=== PATIENT | female | born 1950 | race Caucasian/White ===

== ENCOUNTER → 2016-10-21 | Outpatient (CLI) | payer BC ==
[~2016-10-21] MED LIST: ASCO1CAP3 PO; DIPH-437 PO; ESTR1CRE PV; LUTE10TA PO; OMEGCAP2 PO
== END | disposition home or self-care (01) ==
LOC: C.RDSM 09:00
PROVIDERS: ATTEND Physical Medicine & Rehabilitation Sports Medicine
DX: M25.551 Pain in right hip (principal); M25.561 Pain in right knee

== ENCOUNTER 2017-03-17 00:30 | Emergency (ER) | payer OTHER ==
[~2017-03-17] VITALS: Ht 160 cm; Wt 70.9 kg
[2017-03-17 00:39] VITALS: Ht 160 cm; Wt 70.9 kg
[2017-03-17] MEDS ORDERED: CHOL1000 PO (01:02)
[2017-03-17 01:27] LABS: BASO % 0.4 %; BASO ABS # 0.02 K/uL (0-0.2); COMPLETE YES; EOS % 3.8 %; HEMATOCRIT 43.3 % (37-47); IG% 0.4 %; LYMPH % 26.6 %; LYMPH ABS # 1.49 K/uL (1.2-3.4); MEAN CELL VOLUME 93.1 fL (80-100); MEAN CORPUSCULAR HEMOGLOBIN 33.3 pg (25-34); MEAN CORPUSCULAR HGB CONC 35.8 g/dl (32-36); MEAN PLATELET VOLUME 10.9 fL (7.4-10.4); MONO % 12.3 %; NEUT % 56.5 %; PLATELET COUNT 179 K/uL (130-400); RED BLOOD COUNT 4.65 M/uL (4.2-5.4)
--- NOTE | 2017-03-17 01:30 | EMERGENCY ROOM VISIT NOTE ---
History Report prepared by Aneta: Idania Gross Under the Supervision of: Dr. Camilo Angel M.D. First contact with patient: 01:10 Chief Complaint: TACHYCARDIA Stated Complaint: INCREASED HEART RATE AND BLOOD PRESSURE X 1 1/2 HR Nursing Triage Summary: Pt c/o increased HR that woke her up around 1030pm. Pt states she has been checking her BP since and it has been elevated. Pt has been fighting a cold, last dose of Delsym on Thursday night. Pt denies CP/SOB/dizziness. Pt states "she feels disconnected." History of Present Illness The patient is a 66 year old female who presents to the Emergency Room with complaints of an episode of tachycardia starting an hour and a half ago. The patient states that she felt like her heart has been racing. She reports that she has a BP cuff at home and the highest it was was 184/110. She notes her highest heart rate was 110 bpm. She reports that she has been battling a cold for the past few days and took Delsym two days ago. The patient complains of feeling in slow motion all day yesterday. The patient notes that she had a cough and post nasal drip. She reports that she has also been experiencing increased indigestion that is resolved with TUMS. She notes that she just had her yearly physical with her PCP and they found a heart murmur. She reports that she had an echo and EKG done that are normal. The patient denies urinary symptoms, diarrhea, rashes, and a history of thyroid problems. Source of History: patient Onset: an hour and a half ago Position: other (global) Quality: other (global) Timing: other (episode) Associated Symptoms: + cough, No diarrhea, No urinary symptoms, No rash Note: The patient complains of feeling in slow motion, a post nasal drip, and indigestion. Review of Systems See HPI for pertinent positives & negatives. A total of 10 systems reviewed and were otherwise negative. Family History Patient reports no known family medical history. Social History Smoking Status: Never Smoker Marital Status: Housing Status: lives with family Occupation Status: employed Current/Historical Medications Scheduled Ascorbic Acid (Vitamin C), 500 MG PO QAM Cholecalciferol (Vitamin D3), 2 TABS PO DAILY Lutein (Lutein), 10 MG PO QAM [place]-3 Fatty Acids (Fish Oil), 1 CAP PO QAM Scheduled PRN Acetaminophen/Diphenhydramine (Tylenol Pm), 1 TAB PO HS PRN for PRN Allergies Coded Allergies: NO KNOWN DRUG ALLERGIES (Verified Allergy, Mild, ., 03/17/17) Physical Exam Vital Signs Date Time Temp Pulse Resp B/P (MAP) Pulse Ox O2 Delivery O2 Flow Rate FiO2 03/17/17 02:18 36.7 81 20 160/91 99 03/17/17 00:56 Room Air 03/17/17 00:39 36.7 94 20 166/115 100 Room Air Physical Exam GENERAL: Patient is midly anxious appearing and in no acute distress. HEENT: No acute trauma, normocephalic atraumatic, mucous membranes moist, no nasal congestion, no scleral icterus. NECK: No stridor, no adenopathy, no meningismus, trachea is midline. LUNGS: No dyspnea. Clear to auscultation and equal bilaterally. No wheeze, no rhonchi. HEART: Regular rate and rhythm. No murmurs, rubs, gallops appreciated. ABDOMEN: Soft, nontender, bowel sounds positive, no masses appreciated, no peritonitis. BACK: No midline tenderness, no CVA tenderness EXTREMITIES: Normal motion all extremities, no cyanosis, no edema. NEUROLOGIC: Alert and oriented, no acute motor or sensory deficits, no focal weakness, cranial nerves grossly intact. SKIN: No rash, no jaundice, no diaphoresis. Medical Decision & Procedures ER Provider Diagnostic Interpretation: X ray results are stated below per my interpretation: Chest: 1 view: No infiltrate, no effusion, normal cardiac border. Laboratory Results 03/17/17 00:50 Red Blood Count 4.65, Mean Corpuscular Volume 93.1, Mean Corpuscular Hemoglobin 33.3, Mean Corpuscular Hemoglobin Concent 35.8, Mean Platelet Volume 10.9, Neutrophils (%) (Auto) 56.5, Lymphocytes (%) (Auto) 26.6, Monocytes (%) (Auto) 12.3, Eosinophils (%) (Auto) 3.8, Basophils (%) (Auto) 0.4, Neutrophils # (Auto ) 3.17, Lymphocytes # (Auto) 1.49, Monocytes # (Auto) 0.69, Eosinophils # (Auto ) 0.21, Basophils # (Auto) 0.02 03/17/17 00:50 Test 03/17/17 00:50 White Blood Count 5.60 K/uL (4.8-10.8) Red Blood Count 4.65 M/uL (4.2-5.4) Hemoglobin 15.5 g/dL (12.0-16.0) Hematocrit 43.3 % (37-47) Mean Corpuscular Volume 93.1 fL (80-100) Mean Corpuscular Hemoglobin 33.3 pg (25-34) Mean Corpuscular Hemoglobin Concent 35.8 g/dl (32-36) Platelet Count 179 K/uL (130-400) Mean Platelet Volume 10.9 fL (7.4-10.4) Neutrophils (%) (Auto) 56.5 % Lymphocytes (%) (Auto) 26.6 % Monocytes (%) (Auto) 12.3 % Eosinophils (%) (Auto) 3.8 % Basophils (%) (Auto) 0.4 % Neutrophils # (Auto) 3.17 K/uL (1.4-6.5) Lymphocytes # (Auto) 1.49 K/uL (1.2-3.4) Monocytes # (Auto) 0.69 K/uL (0.11-0.59) Eosinophils # (Auto) 0.21 K/uL (0-0.5) Basophils # (Auto) 0.02 K/uL (0-0.2) RDW Standard Deviation 43.0 fL (36.4-46.3) RDW Coefficient of Variation 12.6 % (11.5-14.5) Immature Granulocyte % (Auto) 0.4 % Immature Granulocyte # (Auto) 0.02 K/uL (0.00-0.02) Anion Gap 7.0 mmol/L (3-11) Est Creatinine Clear Calc Drug Dose 79.0 ml/min Estimated GFR () 106.9 Estimated GFR (Non- 92.2 BUN/Creatinine Ratio 22.2 (10-20) Calcium Level 9.0 mg/dl (8.5-10.1) Troponin I < 0.015 ng/ml (0-0.045) Thyroid Stimulating Hormone (TSH) 4.320 uIu/ml (0.300-4.500) Laboratory results as reviewed by me. ECG Indication: tachycardia Rate (beats per minute): 81 Rhythm: normal sinus Findings: no acute ischemic change, no ectopy Comparison ECG Date: October 23, 2015 Change: no significant change Change: Similar morphology to previous. ED Course 0111: The patient was evaluated in room B3B. A complete history and physical exam was performed. 0210: Reevaluated the patient and she is feeling better. Her blood pressure is table and she would like to go home. Discussed results and discharge instructions: She verbalized understanding and agreement. The patient is ready for discharge. Medical Decision Differential: NSR, SVT, PACs, PVCs, Cardiac Dysrhythmia, Endocrine Dysfunction, Electrolyte/Metabolic Abnormality, Pulmonary Embolism, Infectious, GI, amongst other pathologies entertained. Pleasant 66 yr old female with several hours palpitations and HTN at home. Symptoms resolving by time here though still somewhat HTN. She has been dealing with URI which I suspect is cause of HTN and maybe palpitations. CXR, EKG, Labs look OK. She is stable. Monitor good for several hours with HR 70s- 80s. She is in no distress and looks well. She will follow up with PCP for repeat BP checks and discussion though at present no need to change meds. Reviewed symptoms requiring RTED. Medication Reconcilliation Current Medication List: was personally reviewed by me Blood Pressure Screening Patient's blood pressure: Elevated blood pressure Blood pressure disposition: Referred to PCP Impression Primary Impression: HTN (hypertension) Additional Impression: Heart palpitations Scribe Attestation The scribe's documentation has been prepared under my direction and personally reviewed by me in its entirety. I confirm that the note above accurately reflects all work, treatment, procedures, and medical decision making performed by me. Departure Information Dispostion Home / Self-Care Referrals Regino Smith M.D. (PCP) Forms HOME CARE DOCUMENTATION FORM, IMPORTANT VISIT INFORMATION, WORK / SCHOOL INSTRUCTIONS Patient Instructions ED Palpitations, [facility] Additional Instructions Your blood pressure was elevated during this visit. This is quite common in many people who are being evaluated in the Emergency Department for many reasons. However, it is important that you have your Primary Care Provider recheck your blood pressure and discuss whether treatment will be needed. prison elevated blood pressure can lead to strokes, heart attacks, kidney failure amongst other medical issues. If you develop severe headaches, chest pain, weakness in arms or legs, or other concerning symptoms call 911. Problem Qualifiers
[2017-03-17 01:38] LABS: BLOOD UREA NITROGEN 15 mg/dl (7-18); BUN/CREATININE RATIO 22.2 (10-20); CARBON DIOXIDE 26 mmol/L (21-32); CHLORIDE 106 mmol/L (98-107); CREATININE 0.67 mg/dl (0.60-1.20); GLUCOSE 106 mg/dl (70-99); POTASSIUM 3.5 mmol/L (3.5-5.1); SODIUM 139 mmol/L (136-145)
[2017-03-17 02:18] VITALS: BP 160/91; PULSE 81; TEMP 36.7; O2SAT 99
--- NOTE | 2017-03-17 06:37 | DIAGNOSTIC IMAGING REPORT ---
CHEST ONE VIEW PORTABLE CLINICAL HISTORY: Atypical chest pain COMPARISON STUDY: No previous studies for comparison. FINDINGS: The cardiac and mediastinal contours are normal. There is no evidence of focal pulmonary consolidation. There is no evidence of failure. No pleural effusions are visualized.[ There are calcified left hilar lymph nodes, likely postinflammatory. IMPRESSION: No active disease in the chest. Electronically signed by: Tony Calixto M.D. 03/17/2017 6:35 AM Dictated Date/Time: 03/17/2017 6:35 AM
== END 2017-03-17 02:19 | disposition home or self-care (01) ==
LOC: C.EDB 00:32
DX: I10 Essential (primary) hypertension (principal); R00.2 Palpitations

== ENCOUNTER → 2017-05-28 | Outpatient (CLI) | payer OTHER ==
[~2017-05-28] MED LIST changes: +CHOL1000 PO; -ESTR1CRE PV
--- NOTE | 2017-05-28 14:02 | MAMMOGRAPHY REPORT ---
BILATERAL DIGITAL SCREENING MAMMOGRAM TOMOSYNTHESIS WITH CAD: 05/28/2017 CLINICAL HISTORY: Routine screening. Patient has no complaints. TECHNIQUE: Breast tomosynthesis in addition to standard 2D mammography was performed. Current study was also evaluated with a Computer Aided Detection (CAD) system. COMPARISON: Comparison is made to exams dated: 07/06/2015 mammogram, 06/21/2014 mammogram, 05/11/2013 lena mogram, 04/23/2012 mammogram, 04/16/2011 mammogram, and 04/03/2010 mammogram - [facility]ter. BREAST COMPOSITION: The tissue of both breasts is heterogeneously dense, which may obscure small mas ses. FINDINGS: There are mild vascular calcifications and scattered benign rim calcifications in the shefali sts. No suspicious mass, architectural distortion or cluster of microcalcifications is seen. IMPRESSION: ACR BI-RADS CATEGORY 2: BENIGN There is no mammographic evidence of malignancy. A 1 year screening mammogram is recommended. The pa tient will receive written notification of the results. Approximately 10% of breast cancers are not detected with mammography. A negative mammographic report should not delay biopsy if a clinically suggestive mass is present. Andreina Patton M.D. ay/:05/28/2017 10:13:00 Health Program Analyst: Kelsey RAMIREZ(R)(Dilia), [facility] letter sent: Normal 1/2 BI-RADS Code: ACR BI-RADS Category 2: Benign
== END | disposition home or self-care (01) ==
LOC: C.MAMM 09:05
PROVIDERS: ATTEND Family Medicine
DX: Z12.31 Encounter for screening mammogram for malignant neoplasm of breast (principal)

== ENCOUNTER 2024-10-31 11:03 | Observation (INO) ==
--- NOTE | 2024-09-20 09:59 | PAT Medication Instructions ---
Medication Instructions Date of Service September 20, 2024 Home Medications Medication Instructions Recorded estradiol 0.01% (0.1 mg/gram) 0.5 g vaginal 2XWK #42.5 grams 03/02/24 vaginal cream ascorbic acid (vitamin C) 500 mg tablet 1,000 mg PO PM cholecalciferol (vitamin D3) 25 mcg (1,000 unit) capsule 1,000 units PO HS metoprolol succinate 25 mg tablet,extended release 24 hr (Toprol XL) 25 mg PO HS omega-3 fatty acids 1,000 mg capsule (Fish Oil Concentrate) 1,000 mg PO HS [place] 1 tab PO HS diphenhydramine 25 mg-acetaminophen 500 mg tablet (Tylenol PM Extra Strength) 0.5 tab PO HS apixaban 5 mg tablet 5 mg PO BID PRN estradiol 0.01% (0.1 mg/gram) vaginal cream 0.5 g vaginal 2XWK calcium carbonate (Tums) 2,250 mg PO DAILY PRN turmeric 400 mg capsule 1,400 mg PO HS ASK your prescriber and surgeon apixaban 5 mg tablet 5 mg PO BID PRN(in order for spinal or epidural anesthesia, Eliquis needs to be stopped 72 hours/3 days before surgery. Please check if okay with doctor that prescribes this to you) STOP taking 2 weeks before surgery (or as soon as possible if surgery is within 2 weeks) omega-3 fatty acids 1,000 mg capsule (Fish Oil Concentrate) 1,000 mg PO HS Macushield 1 tab PO HS turmeric 400 mg capsule 1,400 mg PO HS STOP taking 24 hours before surgery estradiol 0.01% (0.1 mg/gram) vaginal cream 0.5 g vaginal 2XWK DO NOT take the morning of surgery calcium carbonate (Tums) 2,250 mg PO DAILY PRN Take evening before surgery ascorbic acid (vitamin C) 500 mg tablet 1,000 mg PO PM cholecalciferol (vitamin D3) 25 mcg (1,000 unit) capsule 1,000 units PO HS metoprolol succinate 25 mg tablet,extended release 24 hr (Toprol XL) 25 mg PO HS diphenhydramine 25 mg-acetaminophen 500 mg tablet (Tylenol PM Extra Strength) 0.5 tab PO HS Other Notes NOTHING TO EAT OR DRINK AFTER MIDNIGHT. If you have any questions please call us at [phone] or [phone] or [phone] or [phone]
--- NOTE | 2024-09-26 12:05 | Anesthesiology Consultation ---
Date of Service September 26, 2024 Assessment & Plan (1) Encounter for pre-operative examination: - PAT testing to be faxed to Dr. Troncoso with [facility] PCP by patient request for continuity of care. - will request most recent pacemaker report and [facility] Dr. Alvarez cardiology office note. - Med[employer] pacemaker. Chart Review Chart Review: Pending: Refer to Additional Notes / Consult section and Patient seen in Pre Admission Testing Teaching & Discussion Pre-Anesthesia Teaching/Discussion Notes: Instructed NPO after midnight before surgery, except medications with 15 cc of water. Medication instructions provided according to the PAT guidelines. History Surgery Operation Date: 10/31/24 08:15 Proposed Procedures p Right Anterior Total Hip Arthroplasty - Cole Brown DO Height/Weight Height: 5 ft 2 in Weight: 71.4 kg Allergies Allergy/AdvReac Type Severity Reaction Status Date / Time No Known Drug Allergies Allergy Mild . Verified 09/19/24 09:39 Medications Home Medications Medication Instructions Recorded Confirmed Last Taken ascorbic acid (vitamin C) 500 mg 1,000 mg PO PM 02/25/19 09/19/24 03/22/20 21:00 tablet cholecalciferol (vitamin D3) 25 1,000 units PO HS 02/25/19 09/19/24 03/22/20 21:00 mcg (1,000 unit) capsule metoprolol succinate 25 mg 25 mg PO HS 02/25/19 09/19/24 03/22/20 21:00 tablet,extended release 24 hr (Toprol XL) omega-3 fatty acids 1,000 mg 1,000 mg PO HS 02/25/19 09/19/24 03/22/20 21:00 capsule (Fish Oil Concentrate) [place] 1 tab PO HS 03/20/20 09/19/24 03/22/20 21:00 diphenhydramine 25 0.5 tab PO HS 03/20/20 09/19/24 03/22/20 21:00 mg-acetaminophen 500 mg tablet (Tylenol PM Extra Strength) apixaban 5 mg tablet 5 mg PO BID PRN Atrial Fibrillation 02/16/23 09/19/24 Unknown estradiol 0.01% (0.1 mg/gram) 0.5 g vaginal 2XWK #42.5 grams 03/02/24 09/19/24 Unknown vaginal cream calcium carbonate (Tums) 2,250 mg PO DAILY PRN Acid Reflux 09/19/24 09/19/24 Unknown turmeric 400 mg capsule 1,400 mg PO HS 09/19/24 09/19/24 Unknown Past Medical History Medical History (Updated 09/26/24 @ 12:14 by Cyndi Santos PA-C) Acid reflux controlled, stable per pt Bladder prolapse Globus sensation History of 2019 novel coronavirus disease (COVID-19) 06/2024 > resolved. 02/16/2020 > resolved History of anesthesia reaction 2014 [place] emphysema in [place] [facility] [place] in [place] overnight--no further issues/no other issues with anesthesia Moderate obstructive sleep apnea On anticoagulant therapy on eliquis daily Paroxysmal atrial fibrillation per pt last episode of a-fib was 11/2023--on eliquis prn/metoprolol follows with Dr. Alvarez Second degree heart block s/p pacemaker; follows with Dr. 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 Exercise / Class Metabolic Activity II 4-5 Yardwork/Stairs/Walk up hill (denies chest discomfort or shortness of breath with one flight of stairs) Past Family History Family History Sister Hypertension Asthma Father Heart disease Cirrhosis Brother Cancer Hypertension Mother Lung cancer Other No family history of adverse response to anesthesia Past Surgical History Surgical History History of benign breast biopsy History of bladder suspension procedure sling in place History of bunionectomy bilat great toes [place] of cardiac [place]2018 [place] [facility] [place] History of colonoscopy (~2010) History of esophagogastroduodenoscopy (EGD) History of hysterectomy [facility] History of open reduction and internal fixation (ORIF) procedure right ankle--hardware in place History of wisdom tooth extraction S/P placement of cardiac pacemaker 04/2018 @ [facility] > last checked 09/08/24 at Fragin's office Urethral diverticulum s/p excision Past Anesthesia History No Hx of Anesthesia Complications and No Family Hx of Anesthesia Complications History of PONV No Hx of PONV and No Hx of Motion Sickness Social History Smoking Status: Never smoker Do You Dip or Chew Tobacco: No Hx Alcohol Use: Yes Alcohol type: beer alcohol intake frequency: a few times a week Hx Substance Use: No substance use type: does not use Review of Systems Patient denies chest pain, shortness of breath, dyspnea on exertion, fever, chills, cough, wheezing, or palpitations. Physical Exam Vital Signs Vitals BP 130/83 P 62 TEMP 97.8 SP02 96% on RA RESP 18 Physical Patient resting comfortably in chair in no acute distress, alert and oriented, responding appropriately throughout visit Full cervical extension range of motion without pain TMD 3.5 finger breadths Mallampati Score 2 Dentition: intact, denies chipped or loose teeth, caps/crowns, implants or bridges Lungs: normal respiratory effort. Good air movement, clear throughout to auscultation, no adventitious breath sounds Cardiac: regular rate and rhythm, no murmurs noted Carotid arteries: negative bruit bilat Lab Results Anesthesia Preop Results Results Anesthesia Widget: WBC 3.78 K/ul (4.8-10.8) L 09/26/24 Hgb 12.1 g/dl (12.0-16.0) 09/26/24 Hct 36.7 % (37.0-47.0) L 09/26/24 Plt 114 K/uL (130-400) L 09/26/24 Na 138 mmol/L (136-145) 09/26/24 K 3.9 mmol/L (3.5-5.1) 09/26/24 Cl 107 mmol/L (98-107) 09/26/24 CO2 28 mmol/L (21-32) 09/26/24 BUN 11 mg/dl (6-23) 09/26/24 Creat 0.57 mg/dl (0.6-1.2) L 09/26/24 Glucose Level 87 mg/dl (70-99(Fasting)) 09/26/24 PT 10.6 Seconds (9.0-12.0) 09/26/24 PTT 27 Seconds (21-31) 09/26/24 INR 1.0 (0.9-1.1) 09/26/24 Blood Type A Positive 09/26/24 Antibody Screen NEGATIVE 09/26/24 Testing Electrocardiogram Date: 09/26/24 Atrial paced rhythm, rate 65 bpm Chest X-Ray Date: 09/26/24 No plain film evidence of an acute cardiopulmonary process. Stress Test Date: 03/08/20 METS 7 MPHR 67% Negative stress echo and EKG for ischemia; cannot rule out ischemic at higher heart rates EF 65% Mild to moderately dilated LV 3:2 conduction, pacemaker recommended
--- NOTE | 2024-10-27 12:05 | History & Physical Report ---
Date of Service October 27, 2024 Assessment & Plan (1) Osteoarthritis of right hip: We will proceed with a right anterior total of arthroplasty. Postoperatively, she will be started on Eliquis for DVT prophylaxis and kept overnight in the hospital for postop medical management. She plans to use energy physical therapy after discharge. History of Present Illness Chief Complaint: Osteoarthritis right hip. Primary Care Provider: Azalia Khan MD Rayna is a pleasant 73-year-old female who has been dealing with chronic increasing right hip and groin pain. X-rays and clinical exam have been diagnostic for advanced arthritis of right hip. She has been treated at another facility conservatively. She has had intraarticular hip injections, but unfortunately she is still dealing with pain. After failing conservative treatment, she has elected to proceed with a right anterior total of arthroplasty. . Allergies Allergy/AdvReac Type Severity Reaction Status Date / Time No Known Drug Allergies Allergy Mild . Verified 09/19/24 09:39 Home Medications Medication Instructions Recorded Confirmed Type ascorbic acid (vitamin C) 500 mg 1,000 mg PO PM 02/25/19 09/19/24 History tablet cholecalciferol (vitamin D3) 25 1,000 units PO HS 02/25/19 09/19/24 History mcg (1,000 unit) capsule metoprolol succinate 25 mg 25 mg PO HS 02/25/19 09/19/24 History tablet,extended release 24 hr (Toprol XL) omega-3 fatty acids 1,000 mg 1,000 mg PO HS 02/25/19 09/19/24 History capsule (Fish Oil Concentrate) [place] 1 tab PO HS 03/20/20 09/19/24 History diphenhydramine 25 0.5 tab PO HS 03/20/20 09/19/24 History mg-acetaminophen 500 mg tablet (Tylenol PM Extra Strength) apixaban 5 mg tablet 5 mg PO BID PRN Atrial Fibrillation 02/16/23 09/19/24 History estradiol 0.01% (0.1 mg/gram) 0.5 g vaginal 2XWK #42.5 grams 03/02/24 09/19/24 Rx vaginal cream calcium carbonate (Tums) 2,250 mg PO DAILY PRN Acid Reflux 09/19/24 09/19/24 History turmeric 400 mg capsule 1,400 mg PO HS 09/19/24 09/19/24 History Past Med/Surg History Problem List Osteoarthritis of right hip Lesion of right upper eyelid Encounter for pre-operative examination Nocturnal hypoxemia Mild obstructive sleep apnea mild, mouth guard only Arthritis (Acute) Medical History Moderate obstructive sleep apnea Paroxysmal atrial fibrillation per pt last episode of a-fib was 11/2023--on eliquis prn/metoprolol follows with Dr. Alvarez Acid reflux controlled, stable per pt TMJ (temporomandibular joint disorder) from mouth guard for apnea, has been working with dentist for other options, just sore, no locking History of 2019 novel coronavirus disease (COVID-19) 06/2024 > resolved. 02/16/2020 > resolved History of anesthesia reaction 2014 developed subcutaneous emphysema in abdomen during [facility]SO @ [facility] [place]had to stay in ICU overnight--no further issues/no other issues with anesthesia Bladder prolapse Globus sensation On anticoagulant therapy on eliquis daily Second degree heart block s/p pacemaker; follows with Dr. 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 in office Surgical History History of bunionectomy bilat great toes History of esophagogastroduodenoscopy (EGD) History of benign breast biopsy History of open reduction and internal fixation (ORIF) procedure right ankle--hardware in place History of bladder suspension procedure sling in place History of wisdom tooth extraction History of cardiac cath 04/2018 @ [facility] [place]--no stents S/P placement of cardiac pacemaker 04/2018 @ [facility] [place] [facility] > last checked 09/08/24 at Kim's office History of colonoscopy (~2010) History of hysterectomy [facility] Urethral diverticulum s/p excision Family History Sister Hypertension Asthma Father Heart disease Cirrhosis Brother Cancer Hypertension Mother Lung cancer Other No family history of adverse response to anesthesia Social History Smoking Status: Never smoker Second Hand Exposure: Yes (childhood/early adulthood); Do You Dip or Chew Tobacco: No; Tobacco Cessation Education Requested by Patient: No Hx Alcohol Use: Yes Alcohol type: beer Hx Substance Use: No Preferred Language: Persian Communication Ability: Effective Diet Assistant Required: No Beliefs That Will Affect Care: None Current Living Situation: Spouse Other Information That Helps Us Care for You: No Feels Safe at Home: Yes Safety Concerns: Feels Safe At This Time Assistive Devices: Contacts and Glasses Review of Systems All systems reviewed & are unremarkable except as noted in HPI & below. Physical Exam On physical exam of the right hip, she has decreased range of motion. She has pain with internal/external rotation. All of her pain is located in the groin.. Constitutional WD/WN, vitals as above Eyes PERRL, conjunctivae normal, anicteric sclerae ENMT external ear and nose normal, oropharynx normal Neck trachea midline, no thyromegaly Respiratory normal respiratory effort Cardiovascular RRR, no murmur, no edema Gastrointestinal (Abdomen) normal bowel sounds, soft, nontender, no hepatosplenomegaly Psychiatric A+Ox3, euthymic affect Results & Data Results & Data Laboratory Results . Diagnostic Findings X-rays of the right hip show advanced osteoarthritis with joint space narrowing, osteophyte formation, and [id number] articulation.. PG Care Time/CCT Total # of Minutes Spent Total Time Spent with Patient: Total time spent is greater than 50% in coordination of care (as documented) at patient's floor/unit and/or counseling patient: Coding Level of Care Code None Diagnoses Osteoarthritis of right hip M16.11
[~2024-10-31 11:03] MED LIST changes: -ASCO1CAP3 PO; +BUPIVACAINE 0.5 % 5 MG/1 ML PF 10ML VIAL ONE; -CHOL1000 PO; -DIPH-437 PO; -LUTE10TA PO; -OMEGCAP2 PO
[2024-10-31] MEDS: LR 500ML BOLUS, THEN 15ML/HR IV SCH (11:28)
[2024-10-31] MEDS: FAMOTIDINE 20 MG TAB PO SCH (11:29)
[2024-10-31] MEDS: GABAPENTIN 300 MG CAP PO SCH (11:29)
[2024-10-31] MEDS: ACETAMINOPHEN 500 MG TAB PO SCH ×2 (11:29→21:51)
[2024-10-31] MEDS: dexAMETHasone**PF** 10 MG/ML VIAL IV SCH (11:29)
[2024-10-31] MEDS: LR 60ML/HR IV SCH (11:30)
[2024-10-31] MEDS ORDERED: LIDOCAINE 2% 2 ML VIAL/AMP(20MG/ML) INFIL ONE (12:16)
[2024-10-31] MEDS ORDERED: MIDAZOLAM HCL 1 MG/ML 2ML VIAL ONE (12:16)
--- NOTE | 2024-10-31 12:20 | History & Physical Bridge Note ---
Date of Service October 31, 2024 History & Physical Bridge Note I have examined the patient, reviewed the History & Physical and in the interval since the performance of the History & Physical I have noted the following changes of clinical significance: no changes noted
[2024-10-31] MEDS ORDERED: ONDANSETRON INJ 2 MG/ML 2 ML VIAL IV PRN ×2 (12:43→15:57)
[2024-10-31] MEDS ORDERED: ATROPINE SULFATE 0.1 MG/ML 10ML SYR IV PRN (12:43)
[2024-10-31] MEDS: TRANEXAMIC ACID 1,000 MG **IV Pre-op IV SCH (13:10)
[2024-10-31] MEDS ORDERED: ePHEDrine sulfate 50 MG/5 ML SYR ONE (13:45)
[2024-10-31] MEDS ORDERED: ONDANSETRON INJ 2 MG/ML 2 ML VIAL ONE (13:58)
[2024-10-31] MEDS: ORTHO JOINT ANESTHETIC ONE (13:58)
[2024-10-31] MEDS: ROPIV 0.5% 246mg, Ketorolac 30mg, EPINEPHrine 0.5mg in NSS INFIL SCH (14:11)
--- NOTE | 2024-10-31 14:17 | Operative Report ---
PG Post Operative Report Pre & Post Diagnosis Operation Date: 10/31/24 13:00 Pre-Op Diagnosis: Osteoarthritis of right hip Post-Op Diagnosis: Osteoarthritis of right hip I identified the patient and participated in the time-out.: Yes Procedure Operation Date: 10/31/24 13:00 Actual Procedures p Right Anterior Total Hip Arthroplasty(Right) - Cole Brown DO Surgeon Cole Brown DO Interior [employer]sembl[employer] Developer Prover Rashi Angulo PA-C Estimated Blood Loss 250 Findings Consistent with Post-Op Diagnosis Specimens Right femoral head Description of Procedure Implants used I used a [employer] total hip arthroplasty system with a size 5 standard offset Z1 stem, a 50 mm G7 cup with a 25mm screw, an E1 polyethylene liner, a 36 mm ceramic head with a +0 neck. Rayna arrived at the hospital for the above procedure. She was seen in the preoperative holding area and the operative extremity was identified and signed. She was given a spinal anesthetic, a preoperative antibiotic, and TXA. She was then taken back to the operating room and laid on the table in the supine position. She was given basic sedation. The operative leg was secured to a Puristst leg positioner. The hip was then prepped and draped in sterile fashion. A timeout was done and the patient and the operative extremity was properly identified. An anterior approach was used. Dissection was taken down through the fascia and the tensor muscle belly was retracted laterally and the rectus was retracted medially. The circumflex vessels were identified and ligated. The capsule was then incised and tagged for later repair. The femoral neck was then cut and the femoral head was removed. The acetabulum was exposed. Time was spent doing a complete circumferential labral release. Sequential reaming of the acetabulum up to a size 49 reamer was done. Final reamings were done under fluoroscopy to ensure appropriate version. A Biomet 50 mm G7 cup was then impacted into place. A single 25 mm screw was placed. The E1 polyethylene liner was then snapped into place. Surrounding soft tissues were then injected with 100 cc of an orthopedic pain control cocktail. The proximal femur was then exposed. Sequential broaching up to a size 5 broach was done. Off that broach a size 36 head with a 0 neck was trialed. The hip was reduced and fluoroscopic images showed anatomic alignment of the implants in acceptable length. The broach was removed. The final size 5 standard offset Z1 stem was then impacted into place. A ceramic 36 mm head with a 0 neck was then impacted onto the stem and the hip was reduced. Final fluoroscopic images showed anatomic alignment of the hip. The capsule was then closed with #1 Vicryl suture. A dilute betadyne lavage was then done for 3 minutes. The joint was then irrigated with normal saline solution. The fascia was closed with #1 PDS suture. Skin was closed with 2-0 Vicryl, saleem, and a Silverlon dressing. She was then transferred to a hospital bed and taken to the post anesthesia care unit in stable condition. She tolerated the procedure well. Rashi Angulo PA-C, was present for the entire procedure. He was critical for patient positioning, prepping, draping, retraction exposure, wound closure and application of sterile dressing. I attest to the content of the Intraoperative Record and any orders documented therein. Any exceptions are noted below.
--- NOTE | 2024-10-31 14:30 | Fluoroscopy Report ---
FL hip RT 1V CLINICAL HISTORY: RT ANTERIOR HIP COMPARISON STUDY: 05/24/2024 FLUOROSCOPY TIME: 10 seconds FLUOROSCOPY IMAGES: 1 EXPOSURE DOSE: 1.2 mGy FINDINGS: Fluoroscopy was provided for right hip prosthesis. IMPRESSION: Intraoperative fluoroscopy. ACT 112: Negative or not required by law. Electronically signed by: Bucky Silvestre M.D. 10/31/2024 2:29 PM
--- NOTE | 2024-10-31 15:04 | XRay Report ---
XR hip 1V RT w pelvis CLINICAL HISTORY: IN PACU - Post Surgical COMPARISON: 05/24/2024 FINDINGS: Right hip prosthesis shows no hardware complication. There is expected soft tissue gas. IMPRESSION: Unremarkable postoperative exam. ACT 112: Negative or not required by law. Electronically signed by: Bucky Silvestre M.D. 10/31/2024 3:02 PM
[2024-10-31] MEDS ORDERED: NALOXONE HCL 0.4 MG/1 ML VIAL/CARP IV PRN (15:57)
[2024-10-31] MEDS ORDERED: MAGNESIUM HYDROXIDE SUSP 30 ML UDC PO PRN (15:57)
[2024-10-31] MEDS ORDERED: METOCLOPRAMIDE HCL INJ 5 MG/ML 2 ML VIAL IV PRN (15:57)
[2024-10-31] MEDS: SODIUM CHLORIDE 0.9% 1,000 ML IV SCH (16:26)
--- NOTE | 2024-10-31 16:29 | Anesthesiology Progress Note ---
Date of Service October 31, 2024 Anesthesia Post Procedure Vital Signs Vital Signs: Temp Pulse Pulse Resp BP Pulse Ox O2 Del Method 10/31/24 16:26 36.5 C 62 16 129/73 96 Room Air 10/31/24 16:01 36.4 C L 62 16 126/70 97 Room Air 10/31/24 15:45 63 14 103/71 98 Room Air 10/31/24 15:35 62 16 119/77 98 Room Air 10/31/24 15:25 36.3 C L 63 16 124/68 97 Room Air 10/31/24 15:15 69 18 121/69 95 Room Air 10/31/24 15:05 70 16 120/68 93 Room Air 10/31/24 14:55 66 16 114/74 95 Oxymask 10/31/24 14:45 66 18 114/63 95 Oxymask 10/31/24 14:39 36.2 C L 70 16 106/64 95 Oxymask 10/31/24 11:51 36.7 C 64 18 139/84 96 Room Air O2 Flow Rate 10/31/24 16:26 10/31/24 16:01 10/31/24 15:45 10/31/24 15:35 10/31/24 15:25 10/31/24 15:15 10/31/24 15:05 10/31/24 14:55 2 10/31/24 14:45 4 10/31/24 14:39 6 10/31/24 11:51 Transfer of Care Handoff Completed per policy Notes Mental Status: alert / awake / arousable and participated in evaluation Patient Amnestic to Procedure: Yes Nausea / Vomiting: adequately controlled Pain: adequately controlled Airway Patency, RR, SpO2: stable & adequate BP & HR: stable & adequate Hydration State: stable & adequate Neuraxial Anesthesia: was administered and sensory block is resolving Anesthetic Complications: no major complications apparent and Pt Satisfied with anesthetic care
[2024-10-31] MEDS: KETOROLAC TROMETHAMINE 15 MG/ML VIAL IV SCH (16:43)
[2024-10-31] MEDS: DOCUSATE SODIUM 100 MG CAP PO SCH (21:51)
[2024-10-31] MEDS: METOPROLOL SUCC 25MG EXT REL TAB PO SCH (21:52)
[2024-10-31] MEDS: SENNA 8.6 MG TAB PO SCH (21:52)
[2024-11-01] MEDS: HYDROmorphone INJ 0.5 MG/0.5 ML SYR IV PRN (00:27)
[2024-11-01] MEDS: APIXABAN 2.5 MG TAB PO SCH (09:05)
[2024-11-01] MEDS: MULTIVITAMIN TAB PO SCH (09:05)
--- NOTE | 2024-11-01 09:36 | Orthopedic Progress Note ---
Date of Service November 01, 2024 Assessment & Plan (1) S/P total right hip arthroplasty: * Continue Current Treatment * Disposition: home * Daily treatment: Physical Therapy/ Occupational Therapy per protocol * Weight bearing status: WBAT, no hip precautions * Continue to monitor for ABLA * Pain control * DVT prophylaxis, Eliquis * Office/hospital f/u 2 weeks for progress check and staple/suture removal * Plan for discharge today pending PT/OT clearance Subjective . Active Problems: S/p right CAREY POD 1 73 y/o female s/p right CAREY. Doing well overall, pain managed and improved function. Denies fever/chills, chest pain/SOB, nausea/vomiting. Otherwise no complaints. Review of Systems All systems reviewed & are unremarkable except as noted in HPI & below. Physical Exam . Right hip surgical dressing CDI, not removed for exam. Otherwise no obvious deformity or overlying skin changes. Diffuse TTP proximal thigh and hip region. Otherwise no specific tenderness of distal thigh, lower leg, foot/ankle. AROM hip flexion intact. AROM foot/ankle intact. Sensation intact plantar/dorsal foot. Brisk capillary refill. Results & Data Results & Data Laboratory Results . Diagnostic Findings . Hip X-Ray 10/31/24 13:00 FL hip RT 1V CLINICAL HISTORY: RT ANTERIOR HIP COMPARISON STUDY: 05/24/2024 FLUOROSCOPY TIME: 10 seconds FLUOROSCOPY IMAGES: 1 EXPOSURE DOSE: 1.2 mGy FINDINGS: Fluoroscopy was provided for right hip prosthesis. IMPRESSION: Intraoperative fluoroscopy. ACT 112: Negative or not required by law. Electronically signed by: Bucky Silvestre M.D. 10/31/2024 2:29 PM Hip/Pelvis X-Ray 10/31/24 14:11 XR hip 1V RT w pelvis CLINICAL HISTORY: IN PACU - Post Surgical COMPARISON: 05/24/2024 FINDINGS: Right hip prosthesis shows no hardware complication. There is expected soft tissue gas. IMPRESSION: Unremarkable postoperative exam. ACT 112: Negative or not required by law. Electronically signed by: Bucky Silvestre M.D. 10/31/2024 3:02 PM PG Care Time/CCT Total # of Minutes Spent Total Time Spent with Patient: Total time spent is greater than 50% in coordination of care (as documented) at patient's floor/unit and/or counseling patient: Coding Level of Care Code 87477 Post Operative Follow-Up Diagnoses S/P total right hip arthroplasty Z96.641
== END 2024-11-01 10:20 | disposition home or self-care (01) ==
LOC: ASU 11:03 → 3N 11:03